=== PATIENT | female | born 1995 | race Caucasian/White ===

== ENCOUNTER 2019-04-25 15:00 | Observation (INO) | payer OTHER ==
[2019-04-25 15:33] VITALS: O2SAT 100
[2019-04-25 16:07] LABS: Amphetamine,Urine NEGATIVE (NEGATIVE); Barbiturate,Urine NEGATIVE (NEGATIVE); Benzodiazepine,Urine NEGATIVE (NEGATIVE); Cocaine,Urine NEGATIVE (NEGATIVE); Methadone,Urine NEGATIVE (NEGATIVE); Opiate,Urine NEGATIVE (NEGATIVE); PCP,Urine NEGATIVE (NEGATIVE); THC,Urine NEGATIVE (NEGATIVE)
[2019-04-25] MEDS ORDERED: Lactated Ringers 1,000 ML IV ONE (20:50)
[2019-04-25] MEDS: Lactated Ringers 1,000 ML IV ONE (20:51)
[2019-04-25 21:03] LABS: Appearance CLEAR (CLEAR); Bilirubin NEGATIVE (NEGATIVE); Blood NEGATIVE Ery/ul (0-5); Glucose NEGATIVE (NEGATIVE); Ketones NEGATIVE (NEGATIVE); Leukocyte Esterase TRACE (NEGATIVE); Mucus SLIGHT /HPF (NEGATIVE); Nitrite NEGATIVE (NEGATIVE); Protein,Urine Dip NEGATIVE (Negative); Specific Gravity 1.012 (1.005-1.025); Urobilinogen 4 mg/dL (0-1)
[2019-04-25 23:16] VITALS: BP 117/86; PULSE 90
== END 2019-04-25 23:01 | disposition home or self-care (01) ==
LOC: OB 15:00
PROVIDERS: ADMIT Family Medicine; ATTEND Family Medicine
DX: Z34.83 Encounter for supervision of other normal pregnancy, third trimester (principal)
CPT/HCPCS: 80307; 81001; G0378

== ENCOUNTER 2019-05-01 14:13 | Observation (INO) | payer OTHER ==
[2019-05-01 14:51] LABS: Amphetamine,Urine NEGATIVE (NEGATIVE); Barbiturate,Urine NEGATIVE (NEGATIVE); Benzodiazepine,Urine NEGATIVE (NEGATIVE); Cocaine,Urine NEGATIVE (NEGATIVE); Methadone,Urine NEGATIVE (NEGATIVE); Opiate,Urine NEGATIVE (NEGATIVE); PCP,Urine NEGATIVE (NEGATIVE); THC,Urine NEGATIVE (NEGATIVE)
[2019-05-01 14:55] VITALS: BP 122/84; PULSE 84
== END 2019-05-01 17:20 | disposition home or self-care (01) ==
LOC: OB 14:13
PROVIDERS: ADMIT Family Medicine; ATTEND Family Medicine
DX: Z34.83 Encounter for supervision of other normal pregnancy, third trimester (principal)
CPT/HCPCS: 80307; G0378

== ENCOUNTER 2019-05-06 18:39 | Observation (INO) | payer OTHER ==
[2019-05-06 19:25] VITALS: BP 137/94; PULSE 89; O2SAT 100
== END 2019-05-06 20:28 | disposition home or self-care (01) ==
LOC: OB 18:39
PROVIDERS: ADMIT Family Medicine; ATTEND Family Medicine
DX: Z34.83 Encounter for supervision of other normal pregnancy, third trimester (principal)
CPT/HCPCS: G0378

== ENCOUNTER 2019-05-09 23:14 | Observation (INO) | payer OTHER ==
[2019-05-10 00:12] LABS: Amphetamine,Urine NEGATIVE (NEGATIVE); Barbiturate,Urine NEGATIVE (NEGATIVE); Benzodiazepine,Urine NEGATIVE (NEGATIVE); Cocaine,Urine NEGATIVE (NEGATIVE); Methadone,Urine NEGATIVE (NEGATIVE); Opiate,Urine NEGATIVE (NEGATIVE); PCP,Urine NEGATIVE (NEGATIVE); THC,Urine NEGATIVE (NEGATIVE)
[2019-05-10 00:37] VITALS: O2SAT 98
--- NOTE | 2019-05-10 09:09 | XRAY ---
Indication: Evaluate LYNETTE. Limited OB ultrasound performed to evaluate LYNETTE. Four-quadrant LYNETTE is 10.6 cm. Largest pocket is 3.9 cm.
[2019-05-10 10:30] VITALS: BP 141/95; PULSE 80
== END 2019-05-10 10:30 | disposition home or self-care (01) ==
LOC: OB 23:14
PROVIDERS: ADMIT Family Medicine; ATTEND Family Medicine
DX: Z34.83 Encounter for supervision of other normal pregnancy, third trimester (principal)
CPT/HCPCS: 76815; 80307; 84112; G0378

== ENCOUNTER 2019-05-11 11:13 | Inpatient (IN) | payer OTHER ==
[2019-05-11] MEDS ORDERED: Zofran 4 MG/2 ML VIAL IV PRN (11:36)
[2019-05-11] MEDS ORDERED: XYLOCAINE 1% HCL 20 ML MDV IJ PRN (11:36)
[2019-05-11] MEDS ORDERED: PITOCIN 30 UNITS/ LR 500 ML 500 ML IV SCH (12:00)
[2019-05-11] MEDS: Lactated Ringers 1,000 ML IV SCH ×2 (12:00→16:26)
[2019-05-11 12:07] LABS: Absolute Neutrophil Ct (ANC) 14.09 (1.4-6.9); BASOPHIL % 0.1 % (0.0-0.4); Basophil (Absolute #) 0.01 (0-0.4); Eosinophil % 0.1 % (0.00-5.0); Eosinophil (Absolute #) 0.02 (0-0.5); Hemoglobin 12.9 gm/dl (12.0-16.0); Lymphocyte (Absolute #) 1.63 (1.0-4.6); Lymphocytes % 9.9 % (24.0-44.0); Mean Cell Volume 91.5 fl (78-100); Mean Corpuscular Hemoglobin 30.3 pg (26-32); Mean Corpuscular Hgb Concent. 33.1 g/dl (32-36); Mean Platelet Volume 10.7 fl (7.5-11.0); Monocyte (Absolute #) 0.73 (0.0-1.3); Monocytes % 4.4 % (0.0-12.0); Neutrophil % 85.5 % (36.0-66.0); Platelet Count 229 K/mm3 (150-450); Red Blood Count 4.26 M/mm3 (4.1-5.4); Red Cell Distribution Width 13.3 % (11.5-14.0); White Blood Count 16.5 K/mm3 (4.0-10.5)
[2019-05-11] MEDS ORDERED: LANSINOH 40 GM TOP PRN (14:56)
[2019-05-11] MEDS ORDERED: TUCKS TP PRN (14:56)
[2019-05-11] MEDS ORDERED: TYLENOL EXTRA STRENGTH 500 MG PO PRN (14:56)
[2019-05-11] MEDS ORDERED: Dulcolax 10 MG SUPP PR PRN (14:56)
[2019-05-11] MEDS ORDERED: Mylicon 80MG PO PRN (14:56)
[2019-05-11] MEDS ORDERED: MOTRIN 400 MG PO PRN (14:56)
[2019-05-11] MEDS ORDERED: Anucort-HC SUPPOSITORY PR PRN (14:56)
[2019-05-11] MEDS ORDERED: NORCO 5/325 MG PO PRN (14:56)
[2019-05-11] MEDS ORDERED: CORTISONE 1% CREAM TP PRN (14:56)
[2019-05-11] MEDS ORDERED: Dermoplast Spray TP PRN (14:56)
[2019-05-11] MEDS ORDERED: Adacel Vial IM ONE (16:00)
[2019-05-11 21:01] VITALS: O2SAT 98
[2019-05-11] MEDS: Colace 100 MG PO SCH (21:10)
[2019-05-12 05:17] LABS: Absolute Neutrophil Ct (ANC) 13.48 (1.4-6.9); Basophil (Absolute #) 0 (0-0.4); Eosinophil % 0.1 % (0.00-5.0); Eosinophil (Absolute #) 0.02 (0-0.5); Hematocrit 33.8 % (35-47); Hemoglobin 11.2 gm/dl (12.0-16.0); Lymphocytes % 14.7 % (24.0-44.0); Mean Cell Volume 92.1 fl (78-100); Mean Corpuscular Hemoglobin 30.5 pg (26-32); Mean Corpuscular Hgb Concent. 33.1 g/dl (32-36); Mean Platelet Volume 10.7 fl (7.5-11.0); Monocyte (Absolute #) 1.03 (0.0-1.3); Neutrophil % 79.2 % (36.0-66.0); Platelet Count 182 K/mm3 (150-450); Red Blood Count 3.67 M/mm3 (4.1-5.4); Red Cell Distribution Width 13.3 % (11.5-14.0)
[2019-05-12] MEDS ORDERED: FERREX 150 PO SCH (10:00)
[2019-05-12] MEDS: Colace 100 MG PO SCH ×2 (11:07→22:10)
--- NOTE | 2019-05-13 09:02 | PCM.DS ---
Discharge Summary Date of Admission: 05/11/19 11:13 Admitting Physician: ENEDINA KHANNA Primary Care Provider: ENEDINA KHANNA Allergies Allergies No Known Drug Allergies Allergy (Unverified 04/25/19 15:26) Hospital Summary - Hospital Course Hospital Course: patient arrived in spont labor, had on 05/10 with no complications. doing well - Vitals & Intake/Output Vital Signs: Vital Signs Temperature 97.9 F 05/13/19 05:45 Pulse Rate 92 H 05/13/19 05:45 Respiratory Rate 20 05/12/19 13:35 Blood Pressure 99/61 05/13/19 05:45 O2 Sat by Pulse Oximetry 98 05/11/19 20:00 Intake & Output: Intake & Output 05/10/19 05/11/19 05/12/19 05/13/19 11:59 11:59 11:59 11:59 Intake Total 2914 Balance 2914 Weight 86.183 kg - Lab Result Diagrams: 05/12/19 04:30 Lab Results-Last 24 Hrs: Lab Results-Last 24 Hours 05/11/19 Range/Units 12:00 Hep Bs Antigen Non Reactive (Non Reactive) - Procedures and Test Procedures and Tests throughout Hospitalization: Therapy Orders & Screens 05/11/19 13:51 Standby STAT Comment: Diagnosis: LABOR TERM Discharge Exam General Appearance: no apparent distress, alert Neurologic Exam: alert, oriented x 3, cooperative, normal mood/affect, nml cerebellar function, sensation nml, No motor deficits Eye Exam: PERRL, EOMI, eyes nml inspection Respiratory Exam: normal breath sounds, lungs clear, No respiratory distress Cardiovascular Exam: regular rate/rhythm, normal heart sounds Gastrointestinal/Abdomen Exam: soft, No tenderness, No mass Extremity Exam: normal inspection, normal range of motion Skin Exam: normal color, warm, dry Final Diagnosis/Problem List - Final Discharge Diagnosis/Problem (1) Vaginal delivery Current Visit: Yes Status: Acute Code(s): O80 - ENCOUNTER FOR FULL-TERM UNCOMPLICATED DELIVERY - Discharge Disposition: Home, Self-Care Condition: Stable Prescriptions: Continue Vits W-Ca,Fe,FA(<1Mg) [] 1 each PO DAILY Follow up with: ENDEINA KHANNA MD [Primary Care Provider] - 1 Week
[2019-05-13 13:54] VITALS: BP 120/75; PULSE 80
== END 2019-05-13 12:05 | disposition home or self-care (01) | DRG 807 ==
LOC: OBSVTOIN 11:13 → OB 11:13
PROVIDERS: ADMIT Family Medicine; ATTEND Family Medicine
PROC: 10E0XZZ Delivery of Products of Conception, External Approach (ICD-10-PCS; principal; 2019-05-11)
DX: O80 Encounter for full-term uncomplicated delivery (principal); Z37.0 Single live birth; Z3A.39 39 weeks gestation of pregnancy
CPT/HCPCS: 36415; 76815; 80307; 84112; 85025; 87340; 90471; 90715; 94799; G0378; J2590; A9270-GY